=== PATIENT | female | born 1970 | race Caucasian/White ===

== ENCOUNTER 2017-09-28 17:43 | Emergency (ER) | payer OTHER ==
[~2017-09-28] VITALS: Ht 157.5 cm; Wt 93.4 kg
[~2017-09-28 17:43] MED LIST: ADDE30TA PO; COZA100T PO; EXCETAB; FIORIC PO; IBUP800T23 PO; MAXA10TA2 PO; PROM25TA5 PO; PROP80CA PO; XANA0.5T PO
[2017-09-28 17:47] VITALS: BP 187/105; PULSE 71; RESP 16; TEMP 97.5; O2SAT 97
[2017-09-28] MEDS ORDERED: SODIUM CHLOR 0.9% 1000 ML INJ 1,000 ML IV ONE ×2 (18:13→18:15)
[2017-09-28] MEDS ORDERED: SODIUM CHLORIDE 0.9% FLUSH 10 ML FLUSH IVF PRN (18:15)
[2017-09-28] MEDS ORDERED: KETOROLAC TROMETHAMINE 30 MG/ML (IVP) VIAL IVP ONE (18:15)
[2017-09-28] MEDS ORDERED: diphenhydrAMINE HCL 50 MG/ML VIAL IVP ONE (18:15)
[2017-09-28] MEDS ORDERED: METOCLOPRAMIDE HCL 10 MG/2 ML VIAL IVP ONE (18:15)
[2017-09-28] MEDS ORDERED: VERA120T3 PO (18:23)
[2017-09-28] MEDS ORDERED: PROP80CA PO (18:23)
[2017-09-28] MEDS ORDERED: MAXA10TA2 (18:23)
[2017-09-28] MEDS ORDERED: ALPR.5 PO (18:23)
[2017-09-28] MEDS ORDERED: EXCETAB31 PO (18:23)
[2017-09-28] MEDS ORDERED: BUTA1CAP PO (18:23)
[2017-09-28] MEDS ORDERED: LOSA100T PO (18:23)
--- NOTE | 2017-09-28 18:31 | PD ---
HPI Chief Complaint: Headache Time Seen by Provider: 18:05 Travel History International Travel<30 days: No Contact w/Intl Traveler<30days: No Traveled to known affect area: No History of Present Illness HPI Patient is a 46-year-old female with history of migraines, presents the emergency room with complaints of migraine headache. Patient reports that for the past 2 weeks, she has been having intermittent left-sided frontal headache. Patient reports that she has had mild relief with her Maxalt, Fioricet as well as Excedrin Migraine; reports that her headache is still persistent. Patient reports that the last time she had a migraine like this, she was seen in the emergency room and was given a migraine cocktail which seemed to relieve symptoms. Patient with no fever or chills, reports that this is similar to her typical persistent migraine headaches. Patient reports photophobia with her symptoms. Patient reports that this is not a thunderclap headache, this is not the worst headache of her life. PFSH Past Medical History ADD: Yes ADHD: Yes Asthma: Yes (seasonal) Anxiety: Yes Cardiovascular Problems: Yes High Cholesterol: Yes Chemotherapy: No Cerebrovascular Accident: No Diabetes: No Diminished Hearing: No Hypertension: Yes Kidney Stones: Yes Respiratory: Yes (ASTHMA) Migraines: Yes ?: Not : 0 Past Surgical History Surgical History: No Previous Surgery Body Medical Devices: ADHD Social History Alcohol Use: Yes (occass mix drinks or beer) Tobacco Use: No (quit 26 yrs ago cigs) Substance Use: No Allergies-Medications (Allergen,Severity, Reaction): Coded Allergies: No Known Allergies (Verified Adverse Reaction, Unknown, 09/28/17) Reported Meds & Prescriptions Reported Meds & Active Scripts Active Reported Verapamil (Verapamil HCl) 120 Mg Tab 120 Mg PO DAILY Maxalt (Rizatriptan Benzoate) 10 Mg Tab DIRECTED Propranolol ER 24 HR (Propranolol HCl) 80 Mg Cap 80 Mg PO DAILY Losartan (Losartan Potassium) 100 Mg Tab 100 Mg PO DAILY Excedrin Migraine Caplet (Aspirin/Acetaminophen/Caffeine) 250 Mg-250 Mg-65 Mg Tablet 2 PO Xanax (Alprazolam) 0.5 Mg Tab 0.5 Mg PO Q8H PRN Fioricet (Hdohgjrjmn-Pahpdypfnuluq-Tlpobfvw) 50-300-40 Mg Cap 1-2 Cap PO Q6H PRN Review of Systems General / Constitutional: No: Fever Eyes: No: Visual changes HENT: No: Headaches Cardiovascular: No: Chest Pain or Discomfort Respiratory: No: Shortness of Breath Gastrointestinal: Positive: Nausea, No: Vomiting, Diarrhea, Abdominal Pain Genitourinary: No: Dysuria Musculoskeletal: No: Pain Skin: No Rash Neurologic: Positive: Headache, No: Weakness, Dizziness, Syncope, Focal Abnormalities Psychiatric: No: Depression Endocrine: No: Polydipsia Hematologic/Lymphatic: No: Easy Bruising Physical Exam Narrative GENERAL: mild distress SKIN: Focused skin assessment warm/dry. HEAD: Atraumatic. Normocephalic. EYES: Pupils equal and round. No scleral icterus. No injection or drainage. ENT: No nasal bleeding or discharge. Mucous membranes pink and moist. NECK: Trachea midline. No JVD. CARDIOVASCULAR: Regular rate and rhythm. No murmur appreciated. RESPIRATORY: No accessory muscle use. Clear to auscultation. Breath sounds equal bilaterally. GASTROINTESTINAL: Abdomen soft, non-tender, nondistended. Hepatic and splenic margins not palpable. MUSCULOSKELETAL: No obvious deformities. No clubbing. No cyanosis. No edema. NEUROLOGICAL: Awake and alert. No obvious cranial nerve deficits. Motor grossly within normal limits. Normal speech. CN 2- 12 grossly intact with no neurological deficits PSYCHIATRIC: Appropriate mood and affect; insight and judgment normal. Data Data Last Documented VS Vital Signs Date Time Temp Pulse Resp B/P (MAP) Pulse Ox O2 Delivery O2 Flow Rate FiO2 09/28/17 18:45 158/92 (114) 09/28/17 18:08 16 97 Room Air 09/28/17 17:47 97.5 71 Orders Orders Complete Blood Count With Diff (09/28/17 18:13) Basic Metabolic Panel (Bmp) (09/28/17 18:13) Prothrombin Time / Inr (Pt) (09/28/17 18:13) Act Partial Throm Time (Ptt) (09/28/17 18:13) Iv Access Insert/Monitor (09/28/17 18:13) Sodium Chloride 0.9% Flush (Ns Flush) (09/28/17 18:15) Ketorolac Inj (Toradol Inj) (09/28/17 18:15) Diphenhydramine Inj (Benadryl Inj) (09/28/17 18:15) Metoclopramide Inj (Reglan Inj) (09/28/17 18:15) Sodium Chlor 0.9% 1000 Ml Inj (Ns 1000 M (09/28/17 18:13) Sodium Chlor 0.9% 1000 Ml Inj (Ns 1000 M (09/28/17 18:15) Ed Discharge Order (09/28/17 20:02) Labs Laboratory Tests Test 09/28/17 18:20 White Blood Count 6.3 TH/MM3 Red Blood Count 4.72 MIL/MM3 Hemoglobin 13.6 GM/DL Hematocrit 40.8 % Mean Corpuscular Volume 86.3 FL Mean Corpuscular Hemoglobin 28.9 PG Mean Corpuscular Hemoglobin Concent 33.5 % Red Cell Distribution Width 13.2 % Platelet Count 174 TH/MM3 Mean Platelet Volume 8.8 FL Neutrophils (%) (Auto) 64.8 % Lymphocytes (%) (Auto) 26.1 % Monocytes (%) (Auto) 6.3 % Eosinophils (%) (Auto) 1.5 % Basophils (%) (Auto) 1.3 % Neutrophils # (Auto) 4.1 TH/MM3 Lymphocytes # (Auto) 1.6 TH/MM3 Monocytes # (Auto) 0.4 TH/MM3 Eosinophils # (Auto) 0.1 TH/MM3 Basophils # (Auto) 0.1 TH/MM3 CBC Comment DIFF FINAL Differential Comment Prothrombin Time 9.5 SEC Prothromb Time International Ratio 0.9 RATIO Activated Partial Thromboplast Time 25.4 SEC Blood Urea Nitrogen 20 MG/DL Creatinine 0.71 MG/DL Random Glucose 83 MG/DL Calcium Level 8.9 MG/DL Sodium Level 140 MEQ/L Potassium Level 4.3 MEQ/L Chloride Level 111 MEQ/L Carbon Dioxide Level 21.6 MEQ/L Anion Gap 7 MEQ/L Estimat Glomerular Filtration Rate 89 ML/MIN [facility] Medical Decision Making Medical Screen Exam Complete: Yes Emergency Medical Condition: Yes Medical Record Reviewed: Yes Interpretation(s) Vital Signs Date Time Temp Pulse Resp B/P (MAP) Pulse Ox O2 Delivery O2 Flow Rate FiO2 09/28/17 18:08 16 97 Room Air 09/28/17 17:47 97.5 71 16 187/105 (253) 97 Differential Diagnosis migraine, ich, tumor Narrative Course Patient is a 46-year-old female who presents to emergency room with complaints of frontal headache which has been intermittent for the past 2 weeks. Patient reports history of migraine headaches in the past, headache is similar to her typical migraine headache. Patient does report relief of symptoms when she receives migraine cocktail in the emergency room in the past., Patient does have a normal neurological exam while in the emergency room, migraine cocktail ordered. During the course of the patients emergency department visit, the patients history, examination, and differential diagnosis were reviewed with the patient. The patient was placed on a security monitor with oximetry and frequent blood pressure monitoring. The patient had an IV access obtained and blood work sent for analysis. The patient was initially provided IVF, IV toradol, IV reglan and IV benadryl The patients laboratory studies were reviewed and remarkable for: CBC & BMP Diagram 09/28/17 18:20 Calcium Level 8.9 Patient reevaluated, patient with complete resolution of migraine at this time. I reviewed all lab work with patient in detail, patient appreciative of care. Signs and symptoms of when to return to the ER was reviewed with patient in detail. Diagnosis Primary Impression: Migraine Qualified Codes: G43.909 - Migraine, unspecified, not intractable, without status migrainosus Patient Instructions: General Instructions Additional Instructions: Please follow up with your primary care doctor in 2-3 days Return to the ER if symptoms worsen or progress Return to the ER as needed Disposition: 01 DISCHARGE HOME Condition: Stable Alka Alberto DO Sep 28, 2017 18:31
[2017-09-28 18:34] LABS: AUTOMATED NEUTROPHIL # 4.1 TH/MM3 (1.8-7.7); BASOPHIL # 0.1 TH/MM3 (0-0.2); BASOPHIL % 1.3 % (0.0-2.0); EOSINOPHIL # 0.1 TH/MM3 (0-0.4); EOSINOPHIL % 1.5 % (0.0-4.0); HEMATOCRIT 40.8 % (35.0-46.0); HEMOGLOBIN 13.6 GM/DL (11.6-15.3); LYMPH % 26.1 % (9.0-44.0); LYMPHOCYTE # 1.6 TH/MM3 (1.0-4.8); MEAN CELL VOLUME 86.3 FL (80.0-100.0); MEAN CORPUSCULAR HEMOGLOBIN 28.9 PG (27.0-34.0); MEAN CORPUSCULAR HGB CONC 33.5 % (32.0-36.0); MEAN PLATELET VOLUME 8.8 FL (7.0-11.0); MONO % 6.3 % (0.0-8.0); MONOCYTE # 0.4 TH/MM3 (0-0.9); NEUT % 64.8 % (16.0-70.0); PLATELET COUNT 174 TH/MM3 (150-450); RED BLOOD COUNT 4.72 MIL/MM3 (4.00-5.30); RED CELL DISTRIBUTION WIDTH 13.2 % (11.6-17.2); WHITE BLOOD COUNT 6.3 TH/MM3 (4.0-11.0)
[2017-09-28 18:45] VITALS: BP 158/92
[2017-09-28 18:48] LABS: INTERNATIONAL NORMALIZED RATIO 0.9 RATIO; PROTHROMBIN TIME - PATIENT 9.5 SEC (9.8-11.6)
[2017-09-28 19:20] LABS: CALCIUM 8.9 MG/DL (8.5-10.1)
[2017-09-28 19:21] LABS: BICARBONATE 21.6 MEQ/L (21.0-32.0)
[2017-09-28 19:24] LABS: CREATININE 0.71 MG/DL (0.50-1.00)
[2017-09-28 20:18] VITALS: BP 147/82
== END 2017-09-28 20:24 | disposition home or self-care (01) ==
LOC: PHED 17:43
DX: G43.909 Migraine, unspecified, not intractable, without status migrainosus (principal); E78.00 Pure hypercholesterolemia, unspecified; F41.9 Anxiety disorder, unspecified; I10 Essential (primary) hypertension; J45.909 Unspecified asthma, uncomplicated; F90.9 Attention-deficit hyperactivity disorder, unspecified type; Z87.442 Personal history of urinary calculi; Z87.891 Personal history of nicotine dependence
CPT/HCPCS: 80048; 85025; 85610; 85730; 96361; 96374; 96375; 99284; J1200; J1885; J2765; J7030

== ENCOUNTER 2017-09-29 15:27 | Emergency (ER) | payer OTHER ==
[~2017-09-29] VITALS: Ht 157.5 cm; Wt 94.0 kg
[~2017-09-29 15:27] MED LIST changes: +ALPR.5 PO; +BUTA1CAP PO; +EXCETAB31 PO; +LOSA100T PO; +MAXA10TA2; +VERA120T3 PO
[2017-09-29 15:33] VITALS: BP 193/110; PULSE 72; RESP 16; TEMP 98; O2SAT 99
[2017-09-29] MEDS ORDERED: SODIUM CHLOR 0.9% 1000 ML INJ 1,000 ML IV ONE (16:31)
[2017-09-29 16:37] VITALS: O2SAT 99
--- NOTE | 2017-09-29 16:39 | PD ---
HPI Chief Complaint: Headache Time Seen by Provider: 16:25 Travel History International Travel<30 days: No Contact w/Intl Traveler<30days: No Traveled to known affect area: No History of Present Illness HPI Patient is a 46-year-old female who returns to the emergency room with complaints of her typical migraine headache. Patient was seen yesterday in the emergency room for similar symptoms, reports that she was given medications for her migraine headache which is typical for her, reports that she had near resolution of symptoms after she was discharged emergency room. 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 Patient reports that pain is still left-sided frontal in nature, reports that she has photophobia associated with her symptoms. Patient reports that historically, when she has these symptoms, only Dilaudid helps her symptoms. Patient did not receive Dilaudid yesterday. Patient with no fever chills, no recent falls or trauma to the head or neck. Patient endorses that this is not the worst headache of her life, reports that her symptoms are similar to her previous migraine headache symptoms. PFSH Past Medical History Hx Anticoagulant Therapy: No ADD: Yes ADHD: Yes Asthma: Yes (seasonal) Anxiety: Yes Cardiovascular Problems: Yes (HTN) High Cholesterol: Yes Chemotherapy: No Cerebrovascular Accident: No Diabetes: No Diminished Hearing: No Hypertension: Yes Kidney Stones: Yes Respiratory: Yes (ASTHMA) Migraines: Yes Tetanus Vaccination: > 5 Years ?: Not : 0 Past Surgical History Body Medical Devices: ADHD Social History Alcohol Use: Yes (occass mix drinks or beer) Tobacco Use: No (quit 26 yrs ago cigs) Substance Use: No Allergies-Medications (Allergen,Severity, Reaction): Coded Allergies: No Known Allergies (Verified Adverse Reaction, Unknown, 09/29/17) Reported Meds & Prescriptions Reported Meds & Active Scripts Active Reported Verapamil (Verapamil HCl) 120 Mg Tab 120 Mg PO DAILY Maxalt (Rizatriptan Benzoate) 10 Mg Tab DIRECTED Propranolol ER 24 HR (Propranolol HCl) 80 Mg Cap 80 Mg PO DAILY Losartan (Losartan Potassium) 100 Mg Tab 100 Mg PO DAILY Excedrin Migraine Caplet (Aspirin/Acetaminophen/Caffeine) 250 Mg-250 Mg-65 Mg Tablet 2 PO Xanax (Alprazolam) 0.5 Mg Tab 0.5 Mg PO Q8H PRN Fioricet (Uggsnauahf-Izwzmbofxxjlb-Rcpdkdew) 50-300-40 Mg Cap 1-2 Cap PO Q6H PRN Review of Systems General / Constitutional: No: Fever Eyes: No: Diploplia, Blurred Vision, Photophobia, Drainage, Visual changes HENT: Positive: Headaches, No: Vertigo, Lightheadedness, Sore Throat, Rhinitis , Rhinorrhea, Neck Pain Cardiovascular: No: Chest Pain or Discomfort Respiratory: No: Shortness of Breath Gastrointestinal: Positive: Nausea, No: Vomiting, Diarrhea, Abdominal Pain Genitourinary: No: Dysuria Musculoskeletal: No: Pain Skin: No Rash Neurologic: No: Weakness Psychiatric: No: Depression Endocrine: No: Polydipsia Hematologic/Lymphatic: No: Easy Bruising Physical Exam Narrative GENERAL: Mild distress SKIN: Focused skin assessment warm/dry. HEAD: Atraumatic. Normocephalic. EYES: Pupils equal and round. No scleral icterus. No injection or drainage. ENT: No nasal bleeding or discharge. Mucous membranes pink and moist. NECK: Trachea midline. No JVD. No nuchal rigidity, negative Kernig's and Brudzinski sign CARDIOVASCULAR: Regular rate and rhythm. No murmur appreciated. RESPIRATORY: No accessory muscle use. Clear to auscultation. Breath sounds equal bilaterally. GASTROINTESTINAL: Abdomen soft, non-tender, nondistended. Hepatic and splenic margins not palpable. MUSCULOSKELETAL: No obvious deformities. No clubbing. No cyanosis. No edema. NEUROLOGICAL: Awake and alert. No obvious cranial nerve deficits. Motor grossly within normal limits. Normal speech. CN 2-12 grossly intact with no neurological deficits PSYCHIATRIC: Appropriate mood and affect; insight and judgment normal. Data Data Last Documented VS Vital Signs Date Time Temp Pulse Resp B/P (MAP) Pulse Ox O2 Delivery O2 Flow Rate FiO2 09/29/17 16:37 99 Room Air 09/29/17 15:33 98.0 72 16 193/110 (137) Orders Orders Complete Blood Count With Diff (09/29/17 16:31) Prothrombin Time / Inr (Pt) (09/29/17 16:31) Act Partial Throm Time (Ptt) (09/29/17 16:31) Ct Brain W/O Iv Contrast(Rout) (09/29/17 16:31) Ecg Monitoring (09/29/17 16:31) Iv Access Insert/Monitor (09/29/17 16:31) Oximetry (09/29/17 16:31) Sodium Chloride 0.9% Flush (Ns Flush) (09/29/17 16:45) Diphenhydramine Inj (Benadryl Inj) (09/29/17 16:45) Metoclopramide Inj (Reglan Inj) (09/29/17 16:45) Hydromorphone Pf Inj (Dilaudid Pf Inj) (09/29/17 16:45) Sodium Chlor 0.9% 1000 Ml Inj (Ns 1000 M (09/29/17 16:31) Dexamethasone Inj (Decadron Inj) (09/29/17 16:45) Hydromorphone Pf Inj (Dilaudid Pf Inj) (09/29/17 17:15) Labs Laboratory Tests Test 09/29/17 16:45 White Blood Count 6.0 TH/MM3 Red Blood Count 4.80 MIL/MM3 Hemoglobin 13.9 GM/DL Hematocrit 41.6 % Mean Corpuscular Volume 86.7 FL Mean Corpuscular Hemoglobin 29.0 PG Mean Corpuscular Hemoglobin Concent 33.5 % Red Cell Distribution Width 13.4 % Platelet Count 198 TH/MM3 Mean Platelet Volume 8.9 FL Neutrophils (%) (Auto) 63.7 % Lymphocytes (%) (Auto) 29.8 % Monocytes (%) (Auto) 3.8 % Eosinophils (%) (Auto) 1.8 % Basophils (%) (Auto) 0.9 % Neutrophils # (Auto) 3.8 TH/MM3 Lymphocytes # (Auto) 1.8 TH/MM3 Monocytes # (Auto) 0.2 TH/MM3 Eosinophils # (Auto) 0.1 TH/MM3 Basophils # (Auto) 0.1 TH/MM3 CBC Comment DIFF FINAL Differential Comment Prothrombin Time 9.4 SEC Prothromb Time International Ratio 0.9 RATIO Activated Partial Thromboplast Time 25.9 SEC MDM Medical Decision Making Medical Screen Exam Complete: Yes Emergency Medical Condition: Yes Medical Record Reviewed: Yes Interpretation(s) Vital Signs Date Time Temp Pulse Resp B/P (MAP) Pulse Ox O2 Delivery O2 Flow Rate FiO2 09/29/17 15:33 98.0 72 16 193/110 (137) 99 Differential Diagnosis Migraine, intracranial hemorrhage, electrolyte abnormality Narrative Course 46-year-old female who returns to the emergency room for return of her migraine headache, migraine headache is at baseline and is comparable to her previous episodes. Patient reports that she was seen yesterday in the emergency room, she did endorse that she felt better after she left the ER but reports that her headache returned shortly after lunch today. During the course of the patients emergency department visit, the patients history, examination, and differential diagnosis were reviewed with the patient. The patient was placed on a compliance aide with oximetry and frequent blood pressure monitoring. The patient had an IV access obtained and blood work sent for analysis. The patient was initially provided IV fluids as well as migraine cocktail. The patients laboratory studies were reviewed and remarkable for: CBC & BMP Diagram 09/29/17 16:45 Radiology studies were reviewed and remarkable for : Last Impressions Head CT 09/29/17 1631 Signed Impressions: Service Date/Time: Friday, September 29, 2017 17:09 - CONCLUSION: Negative for acute process Efraín Mckinley MD FACR Patient reevaluated, patient reports that she feels 100% better at this time. I reviewed all studies with patient including labs. She will follow up with her pcp and will return to the ER was needed. Patient appreciative of care Diagnosis Primary Impression: Migraine Qualified Codes: G43.909 - Migraine, unspecified, not intractable, without status migrainosus Patient Instructions: General Instructions Additional Instructions: Please follow up with your primary care doctor in 2-3 days Return to the ER if symptoms worsen or progress Return to the ER as needed Disposition: 01 DISCHARGE HOME Condition: Stable Alka Alberto DO Sep 29, 2017 16:39
[2017-09-29] MEDS ORDERED: METOCLOPRAMIDE HCL 10 MG/2 ML VIAL IVP ONE (16:45)
[2017-09-29] MEDS ORDERED: DEXAMETHASONE SOD PHOS 20 MG/5 ML VIAL IV PUSH ONE (16:45)
[2017-09-29] MEDS ORDERED: SODIUM CHLORIDE 0.9% FLUSH 10 ML FLUSH IVF PRN (16:45)
[2017-09-29] MEDS ORDERED: diphenhydrAMINE HCL 50 MG/ML VIAL IVP ONE (16:45)
[2017-09-29] MEDS ORDERED: HYDROmorphone HCL PF 1 MG/ML VIAL IVS ONE (16:45)
[2017-09-29 17:14] LABS: AUTOMATED NEUTROPHIL # 3.8 TH/MM3 (1.8-7.7); BASOPHIL # 0.1 TH/MM3 (0-0.2); BASOPHIL % 0.9 % (0.0-2.0); EOSINOPHIL # 0.1 TH/MM3 (0-0.4); EOSINOPHIL % 1.8 % (0.0-4.0); HEMATOCRIT 41.6 % (35.0-46.0); HEMOGLOBIN 13.9 GM/DL (11.6-15.3); LYMPH % 29.8 % (9.0-44.0); LYMPHOCYTE # 1.8 TH/MM3 (1.0-4.8); MEAN CELL VOLUME 86.7 FL (80.0-100.0); MEAN CORPUSCULAR HGB CONC 33.5 % (32.0-36.0); MEAN PLATELET VOLUME 8.9 FL (7.0-11.0); MONO % 3.8 % (0.0-8.0); MONOCYTE # 0.2 TH/MM3 (0-0.9); NEUT % 63.7 % (16.0-70.0); PLATELET COUNT 198 TH/MM3 (150-450); RED CELL DISTRIBUTION WIDTH 13.4 % (11.6-17.2)
[2017-09-29] MEDS ORDERED: HYDROmorphone HCL PF 2 MG/ML VIAL IV PUSH ONE (17:15)
--- NOTE | 2017-09-29 17:25 | RADRPT ---
EXAM DATE/TIME: 09/29/2017 17:09 [facility] COMPARISON: No previous studies available for comparison. INDICATIONS : Cephalgia. RADIATION DOSE: 56.05 CTDIvol (mGy) MEDICAL HISTORY : Renal calculi. Hypertension. Asthma. SURGICAL HISTORY : None. ENCOUNTER: Initial ACUITY: 2 weeks PAIN SCALE: 10/10 LOCATION: cranial TECHNIQUE: Multiple contiguous axial images were obtained of the head. Using automated exposure control and adj ustment of the mA and/or kV according to patient size, radiation dose was kept as low as reasonably a chievable to obtain optimal diagnostic quality images. DICOM format image data is available electro nically for review and comparison. FINDINGS: CEREBRUM: The ventricles are normal for age. No evidence of midline shift, mass lesion, hemorrhage or acute in farction. No extra-axial fluid collections are seen. POSTERIOR FOSSA: The cerebellum and brainstem are intact. The 4th ventricle is midline. The cerebellopontine angle i s unremarkable. EXTRACRANIAL: The visualized portion of the orbits is intact. SKULL: The calvaria is intact. No evidence of skull fracture. CONCLUSION: Negative for acute process Efraín Mckinley MD FACR on September 29, 2017 at 17:22 Board Certified Radiologist. This report was verified electronically.
[2017-09-29 17:30] LABS: INTERNATIONAL NORMALIZED RATIO 0.9 RATIO; PROTHROMBIN TIME - PATIENT 9.4 SEC (9.8-11.6)
[2017-09-29 19:16] VITALS: BP 175/105; PULSE 66; RESP 16; O2SAT 99
== END 2017-09-29 19:43 | disposition home or self-care (01) ==
LOC: PHED 15:27
DX: G43.909 Migraine, unspecified, not intractable, without status migrainosus (principal); F90.9 Attention-deficit hyperactivity disorder, unspecified type; J45.909 Unspecified asthma, uncomplicated; F41.9 Anxiety disorder, unspecified; I10 Essential (primary) hypertension; E78.00 Pure hypercholesterolemia, unspecified; Z87.442 Personal history of urinary calculi; Z87.891 Personal history of nicotine dependence; Z79.899 Other long term (current) drug therapy
CPT/HCPCS: 70450; 85025; 85610; 85730; 96361; 96374; 96375; 99284; J1100; J1170; J1200; J2765; J7030